=== PATIENT | female | born 1985 | race African-American/Black ===

== ENCOUNTER 2018-12-13 17:04 | Emergency (ER) | payer MEDICAID, OTHER ==
[~2018-12-13] VITALS: Ht 162.6 cm; Wt 142.9 kg
[~2018-12-13 17:04] MED LIST: METR500T14
[2018-12-13 17:32] VITALS: BP 147/98
== END 2018-12-13 19:43 | disposition left against medical advice (07) ==
LOC: ER 17:04
DX: J02.9 Acute pharyngitis, unspecified (principal); M79.10 Myalgia, unspecified site; Z53.21 Procedure and treatment not carried out due to patient leaving prior to being seen by health care provider